=== PATIENT | male | born 1980 | race American Indian/Alaskan Native ===

== ENCOUNTER 2016-09-10 16:37 | Inpatient (IN) | payer MEDICAID, OTHER ==
[2016-09-10 16:51] VITALS: BMI 18.6
[2016-09-10 18:12] LABS: BASO % 0.2 % (0.0-2.0); EOS % 0.2 % (0.0-4.0); HEMATOCRIT 37.7 % (35.0-51.0); LYMPH # 1.8 K/uL (1.0-4.3); LYMPH % 14.9 % (20.0-40.0); MEAN CELL VOLUME 88.8 fL (80.0-94.0); MEAN CORPUSCULAR HEMOGLOBIN 29.2 pg (27.0-31.0); MEAN CORPUSCULAR HGB CONC 32.8 g/dL (33.0-37.0); MEAN PLATELET VOLUME 7.6 fL (7.2-11.7); MONO # 0.7 K/uL (0.0-0.8); MONO % 5.7 % (0.0-10.0); NRBC % 0.1 % (0.0-2.0); RED CELL DISTRIBUTION WIDTH 13.6 % (11.5-14.5); WHITE BLOOD COUNT 12.2 K/uL (4.8-10.8)
[2016-09-10 18:20] LABS: CHLORIDE 98 mmol/L (98-107); SODIUM 139 mmol/L (132-148)
[2016-09-10 18:21] LABS: POTASSIUM 4.1 mmol/L (3.6-5.2)
[2016-09-10 18:23] LABS: ALB/GLOB RATIO 1.3 (1.0-2.1); ALKALINE PHOSPHATASE 63 U/L (38-126); ALT/SGPT 24 U/L (21-72); AST/SGOT 16 U/L (17-59); BILIRUBIN,TOTAL 0.7 mg/dL (0.2-1.3); BLOOD UREA NITROGEN 10 mg/dL (9-20); CALCIUM 8.9 mg/dl (8.6-10.4); CARBON DIOXIDE 31 mmol/L (22-30); GFR AFRICAN-AMERICAN > 60; GLUCOSE,RANDOM 130 mg/dL (75-110)
[2016-09-10 18:24] LABS: ALCOHOL SERUM < 10 mg/dl (0-10)
--- NOTE | 2016-09-10 18:26 | C.PDOC ---
History Of Present Illness 35 y/o male, with history of cocaine and heroin abuse, brought to the ED by ambulance requesting detox. Patient states last use of cocaine was 2 hours ago, and last heroin use was earlier today. Patient states he feels shaky and nervous. Patient denies alcohol use or hisotry of alcohol withdrawal, chest pain , shortness of breath, abdominal pain, nausea, vomiting. Time Seen by Provider: 09/10/16 16:43 Chief Complaint (Nursing): Substance Abuse History Per: Patient History/Exam Limitations: no limitations Onset/Duration Of Symptoms: Gradual Current Symptoms Are (Timing): Still Present Suicide/Self Injury Attempted (Context): None Modifying Factor(s): Cocaine, Other (heroin) Severity: Mild Associated Symptoms: Other (nervous) Involuntary Hold By: None Additional History Per: Patient Past Medical History Reviewed: Historical Data, Nursing Documentation, Vital Signs Vital Signs: Last Vital Signs Temp 98.7 F 09/10/16 16:51 Pulse 101 H 09/10/16 16:51 Resp 18 09/10/16 16:51 BP 131/79 09/10/16 16:51 Pulse Ox 96 09/10/16 18:38 - Medical History PMH: Arthritis (sepic knees), Fractures (RIGHT AND LEFT ARMS/HANDS,SKULL FX, JUMPED IN,RIBS,LEFT LOWER LEG), Pneumonia - [facility] Procedures DETOXIFICATION SERVICES FOR SUBSTANCE ABUSE TREATMENT (09/28/15) INJECT/INFUSE NEC (01/29/13) Family History: States: No Known Family Hx - Social History Hx Tobacco Use: Yes (30 per day) Hx Alcohol Use: No Hx Substance Use: Yes (heroin) - Immunization History Hx Tetanus Toxoid Vaccination: No Hx Influenza Vaccination: No Hx Pneumococcal Vaccination: No Review Of Systems Except As Marked, All Systems Reviewed And Found Negative. Constitutional: Negative for: Fever, Chills Cardiovascular: Negative for: Chest Pain, Palpitations Respiratory: Negative for: Cough, Shortness of Breath Gastrointestinal: Negative for: Nausea, Vomiting, Abdominal Pain Neurological: Negative for: Headache, Dizziness Psych: Negative for: Withdrawal Physical Exam - Physical Exam Appears: Non-toxic, No Acute Distress, Other (anxious) Skin: Normal Color, Warm, Dry Head: Normacephalic Eye(s): bilateral: Normal Inspection Oral Mucosa: Moist Neck: Supple Cardiovascular: Rhythm Regular (mildly tachycardic), No Murmur Respiratory: Normal Breath Sounds, No Rales, No Rhonchi, No Wheezing Gastrointestinal/Abdominal: Normal Exam, Bowel Sounds, Soft, No Tenderness Extremity: Normal ROM Neurological/Psych: Oriented x3 ED Course And Treatment - Laboratory Results Result Diagrams: 09/10/16 18:04 09/10/16 18:04 O2 Sat by Pulse Oximetry: 96 (on RA) Pulse Ox Interpretation: Normal Progress Note: Blood work, UA, UDS ordered. Patient given PO Xanax, nicotine patch. 7:00pm- Patient medically cleared. Pending crisis. Disposition - Disposition Disposition Time: 19:00 Condition: STABLE - Clinical Impression Clinical Impression: Heroin dependence, Cocaine dependence - Scribe Statement The provider has reviewed the documentation as recorded by the Alexandro Rod Provider Attestation: All medical record entries made by the Eveliaibe were at my direction and personally dictated by me. I have reviewed the chart and agree that the record accurately reflects my personal performance of the history, physical exam, medical decision making, and the department course for this patient. I have also personally directed, reviewed, and agree with the discharge instructions and disposition. Physician Patient Turnover Patient Signed Over To: Debby Castillo Handoff Comments: Pending crisis, dispo.
[2016-09-10 18:44] LABS: RBC URINE 35 /hpf (0-3); URINE BACTERIA FEW (<OCC); URINE BILIRUBIN NEGATIVE (NEGATIVE); URINE BLOOD NEGATIVE (NEGATIVE); URINE COLOR Yellow (YELLOW); URINE GLUCOSE (UA) NORMAL (Normal); URINE KETONE TRACE mg/dL (NEGATIVE); URINE LEUKOCYTE ESTERASE 2+ Leu/uL (Negative); URINE PROTEIN 1+ mg/dL (NEGATIVE); URINE UROBILINOGEN NORMAL mg/dL (0.2-1.0); WBC URINE 86 /hpf (0-5)
[2016-09-10] MEDS ORDERED: Buprenorphine Hydrochloride 2 mg SL ONE (22:00)
[2016-09-11] MEDS ORDERED: Buprenorphine Hydrochloride 2 mg SL ONE
[2016-09-11] MEDS ORDERED: Buprenorphine Hydrochloride 2 mg SL SCH (14:00)
[2016-09-11] MEDS: Buprenorphine Hydrochloride 2 mg SL SCH ×2 (14:17→14:18)
--- NOTE | 2016-09-11 21:13 | PCM.PSYCH ---
Initial Psychiatric Evaluation - Initial Psychiatric Evaluation Legal Status: Capacity Chief Complaint (in patient's own words): I need to get well to care for my child! Patient's Reaction to Hospitalization: I am glad to get clean for my daughter! History of Present Illness and Precipitating Events: Pt isa36 year old black, unemployed, undomiciled male whose drug of choice is heroin. he stated using heroin four years ago. he has been on pa\\on killers for a broken back and fractured ankle. Several years ago he states that the pain was so bad from the fall of 20 feet where he broke his back, he was screaming for weeks. his significant other told him to sniff a powder which he states he did not was heroin and pain eased. Pt uses about 15 bags a day > Pt has been at detoxes in [facility], [facility], and [facility]. He has had [facility]. Pt denies use and abuse of other substances licit or illicit. Pt has been charged with simple assault. He has never been in the . Both parents are living. He has 2 full brother and 1 full sister and 20 half sibs. His aunt is a schizophrenic. Father has PTSD and uses cocaine. Mother age60 suffers from early onset dementia. Pt denied any psych hospitalization. He states he has been on clonidine and possibly Xanax However he states he has tried to kill himself by "Wrapping his car around a tree"he has overdosed on aspirin and he has cut his wrists. . He has withdraw symptoms of anxiety, depression, fever, chills and body sches. He also complasins of restless legs Current Medications: Active Medications Generic Name Dose Route Start Last Admin Trade Name Freq PRN Reason Stop Dose Admin Buprenorphine HCl 8 mg 09/11/16 14:00 09/11/16 14:17 Subutex SL 09/15/16 13:59 8 mg Q24H JAIRO Administration Taper Clonidine HCl 0.1 mg 09/11/16 13:20 Catapres PO Q8 PRN COWS Score More or Equal to 5 Hydroxyzine HCl 25 mg 09/11/16 13:24 09/11/16 16:36 Atarax PO 25 mg Q6 PRN Administration Anxiety Nitrofurantoin Macrocrystals 100 mg 09/11/16 20:00 09/11/16 20:17 Macrobid PO 09/14/16 20:00 100 mg Q12H JAIRO Administration Trazodone HCl 100 mg 09/10/16 22:00 09/11/16 00:16 Desyrel PO 100 mg HS PRN Administration insomnia Past Psychiatric History - Past Psychiatric History Prior Professional Help: see hpi Pertinent Medical Hx (Current Medical&Sleep Prob, Allergies): Allergies Allergy/AdvReac Type Severity Reaction Status Date / Time No Known Allergies Allergy Verified 09/10/16 16:48 Gabapentin [Neurontin] 400 mg PO TID #90 cap 10/02/15 Mirtazapine [Remeron] 30 mg PO HS #30 tab 10/02/15 traZODone [Desyrel] 50 mg PO HS PRN #30 tab 10/02/15 Review of Systems - Constitutional Constitutional: Chills, Sweats, Malaise - EENT Eyes: UNREMARKABLE Ears: UNREMARKABLE Nose/Mouth/Throat: UNREMARKABLE - Cardiovascular Cardiovascular: UNREMARKABLE - Respiratory Respiratory: UNREMARKABLE - Gastrointestinal Gastrointestinal: Abdominal Pain, Cramping, Loose Stools - Genitourinary Genitourinary: UNREMARKABLE - Reproductive: Male Reproductive:Male: UNREMARKABLE - Musculoskeletal Musculoskeletal: Arthralgias, Myalgias - Integumentary Integumentary: UNREMARKABLE - Neurological Neurological: UNREMARKABLE - Psychiatric Psychiatric: Anhedonia, Anxiety - Hematologic/Lymphatic Hematologic: UNREMARKABLE Mental Status Examination - Personal Presentation Personal Presentation: Looks stated age - Affect Affect: Constricted - Motor Activity Motor Activity: Calm - Reliability in Providing Information Reliability in Providing Information: Good - Speech Speech: Organized, Coherent - Mood Mood: Depressed, Anxious - Formal Thought Process Formal Thought Process: No Impairment - Obsessions/Compulsions Obsessions: No Compulsions: No - Cognitive Functions Orientation: Person, Place, Situation, Time Sensorium: Alert Attention/Concentration: Attentive Abstract Thinking: As evidence by literal perception of proverbs Estimate of Intelligence: Average Judgement: Intact, as evidence by: Insight regarding need for hospitalization Memory: Recent intact, as evidence by: 3/3 object recall, Remote intact, as evidenced by: Ability to recall historical events - Risk Risk: Withdrawal - Strength & Assets Inventory Strength & Assets Inventory: Intelligence, Employment history - Limitations Limitations: Living alone DSM 5 DX - DSM 5 DSM 5 Diagnosis: opioid use disorder sedvere opioid withdrawal opioid withdrawal Subutex opioid use disorder group milieu qnd recreational therapy [place] CBT andsupportive psychotherapy - Recommended/Plan of Treatment Projected ELOS: 5 days Prognosis: good with treatment Discharge Plan and Discharge Criteria: no acute withdrawal symptoms - Smoking Cessation Smoking Cessation Initiated: Yes
[2016-09-12] MEDS ORDERED: Aluminum Hydroxide/Magnesium Hydroxide Susp (30 mL) PO PRN (10:19)
[2016-09-12] MEDS ORDERED: Buprenorphine Hydrochloride 2 mg SL SCH (11:00)
[2016-09-12] MEDS: Buprenorphine Hydrochloride 2 mg SL SCH (11:10)
--- NOTE | 2016-09-12 11:27 | PCM.PYCHPN ---
Psychiatric Progress Note - Psychiatric Progress Note Patient seen today, length of contact: 16 min Patient Chief Complaint: "I don't feel well" Problems Identified/Issues Discussed: The pt is seen, chart reviewed, case discussed with staff. The pt is compliant with medications and reports no side-effects. Symptoms are improving but needs more time to stabilize. After care discussed, support and psychoeducation given. RI and CBT used briefly. Medication Change: Yes (detox changes daily) Medical Record Reviewed: Yes Mental Status Examination - Cognitive Function Orientation: Person, Place, Situation, Time Memory: Impaired Attention: Poor Concentration: Poor Association: WNL Fund of Knowledge: WNL - Mood Mood: Depressed, Anxious - Affect Affect: Constricted - Speech Speech: Soft - Formal Thought Process Formal Thought Process: No Impairment - Suicidal Ideation Suicidal Ideation: No - Homicidal Ideation Homicidal Ideation: No Goal/Treatment Plan - Goal/Treatment Plan Need for Continued Stay: Discharge may exacerbated symptoms, Severe functional impairment Progress Toward Problem(s) and Goals/Treatment Plan: Continue subutex detox As needed meds Groups and activities Mi and CBt refer to IOP and MAT Estimated Date of D/C: 09/13/16 - Smoking Cessation Smoking Cessation Initiated: No
[2016-09-12 14:00] LABS: BASO % 0.4 % (0.0-2.0); EOS % 0.7 % (0.0-4.0); HEMATOCRIT 40.1 % (35.0-51.0); LYMPH # 2.1 K/uL (1.0-4.3); LYMPH % 32.7 % (20.0-40.0); MEAN CELL VOLUME 88.6 fL (80.0-94.0); MEAN CORPUSCULAR HEMOGLOBIN 29.3 pg (27.0-31.0); MEAN PLATELET VOLUME 7.4 fL (7.2-11.7); MONO # 0.6 K/uL (0.0-0.8); MONO % 9.6 % (0.0-10.0); RED CELL DISTRIBUTION WIDTH 13.9 % (11.5-14.5); WHITE BLOOD COUNT 6.4 K/uL (4.8-10.8)
[2016-09-12 14:23] LABS: BLOOD UREA NITROGEN 11 mg/dL (9-20); CALCIUM 8.9 mg/dl (8.6-10.4); CARBON DIOXIDE 26 mmol/L (22-30); CHLORIDE 100 mmol/L (98-107); GFR AFRICAN-AMERICAN > 60; GLUCOSE,RANDOM 105 mg/dL (75-110); POTASSIUM 4.3 mmol/L (3.6-5.2); SODIUM 137 mmol/L (132-148)
[2016-09-13] MEDS: Buprenorphine Hydrochloride 2 mg SL SCH (09:24)
--- NOTE | 2016-09-13 13:58 | PCM.PYCHPN ---
Psychiatric Progress Note - Psychiatric Progress Note Patient seen today, length of contact: 18 min Patient Chief Complaint: "I don't feel well" Problems Identified/Issues Discussed: The pt is seen, chart reviewed and case discussed. He looked concerned and sad and when questioned he claimed he had given custody of his 4-year old son to his friend Zeny, b/c he was in detox and then rehab and allegedly his had left and never came back. He heard that she contacted her mother to let her know that she was alright. He looked sad a little but he also left the impression that he may be feigning this sadness for secondary gains. He looked calm and happy many times during his saty and there were questionable issues in his story, i.e. giving custody of a child in a month to a friend (?) He states that he slept on and off last night for a few hours due to bad dreams and chronic back pain that worsens when hes clean. He denies feeling suicidal or homicidal. The pt is compliant with medications and reports no side-effects. Symptoms are improving but needs more time to stabilize. After care discussed, support and psychoeducation given. He is yet undecided but technical publications writer and team suggested he should consider rehab and MAT TN and CBT used briefly. Medication Change: Yes (detox changes daily) Medical Record Reviewed: Yes Mental Status Examination - Cognitive Function Orientation: Person, Place, Situation, Time Memory: Impaired Attention: Poor Concentration: Poor Association: WNL Fund of Knowledge: WNL - Mood Mood: Depressed, Anxious - Affect Affect: Constricted - Speech Speech: Soft - Formal Thought Process Formal Thought Process: No Impairment - Suicidal Ideation Suicidal Ideation: No - Homicidal Ideation Homicidal Ideation: No Goal/Treatment Plan - Goal/Treatment Plan Need for Continued Stay: Discharge may exacerbated symptoms, Severe functional impairment Progress Toward Problem(s) and Goals/Treatment Plan: Continue subutex detox As needed meds Groups and activities TN and CBt refer to IOP and MAT Estimated Date of D/C: 09/13/16
[2016-09-14] MEDS: Buprenorphine Hydrochloride 2 mg SL SCH (09:08)
--- NOTE | 2016-09-14 14:56 | PCM.PYCHPN ---
Psychiatric Progress Note - Psychiatric Progress Note Patient seen today, length of contact: 18 min Patient Chief Complaint: "I feel tired." Problems Identified/Issues Discussed: The pt is seen, chart reviewed and case discussed. The patient states hes tired because he has been unable to sleep, waking up 5- 6 times during the night to use the restroom. He also complains of pressure in his head, constant body aches, and periodic numbness in his left hand. He denies nausea, vomiting, and abdominal pain and states that his anxiety is no different than yesterday. His plan is to go to the [facility] tomorrow. He denies feeling suicidal or homicidal. The pt is compliant with medications and reports no side-effects. Symptoms are improving but needs more time to stabilize. After care discussed, support and psychoeducation given. Medication Change: Yes (detox changes daily) Medical Record Reviewed: Yes Mental Status Examination - Cognitive Function Orientation: Person, Place, Situation, Time Memory: Impaired Attention: WNL Concentration: WNL Association: WNL Fund of Knowledge: WNL - Mood Mood: Depressed, Anxious - Affect Affect: Constricted - Speech Speech: Soft - Formal Thought Process Formal Thought Process: No Impairment - Suicidal Ideation Suicidal Ideation: No - Homicidal Ideation Homicidal Ideation: No Goal/Treatment Plan - Goal/Treatment Plan Need for Continued Stay: Discharge may exacerbated symptoms, Severe functional impairment Progress Toward Problem(s) and Goals/Treatment Plan: Continue subutex detox As needed meds Groups and activities [place] and CBt Consider MAT Estimated Date of D/C: 09/15/16
[2016-09-14 15:38] VITALS: RESP 18
--- NOTE | 2016-09-15 09:36 | PCM.PYCHDC ---
Mental Status Examination - Mental Status Examination Orientation: Person, Place, Situation, Time Memory: Intact Mood: Anxious Affect: Constricted Speech: Appropriate Attention: WNL Concentration: WNL Association: WNL Fund of Knowledge: WNL Formal Thought Process: No Impairment Suicidal Ideation: No Current Homicidal Ideation?: No Discharge Summary - Discharge Note Reason for Hospitalization: Heroin detox Consultations:: List each consultation separately and include: 1. Reason for request. 2. Findings. 3. Follow-up Summary of Hospital Course include:: 1. Description of specific treatment plan utilized for patients during their course of treatmen. 2. Summarize the time- course for resolution of acute symptoms and/or regressed behaviors. 3. Describe issues identified and worked on during hospitalization. 4. Describe medication utilized. 5. Describe medical problems identified and treated. 6. Reassessment of suicide risk Summary of Hospital Course: The pt was admitted and started on treatment with psychotherapy, support, psychoeducation and medications. MD and CBT used. The pt attended groups and activities, as well as milieu therapy. All the risks and benefits of medications are discussed and the patient understood and agreed. After care discussed with the patient. He somewhat reluctantly agreed to [facility] [place] He was very odd, had blunted affect, aloof, guarded and sounded disingenuous at times. His motivation was also shaky but nevertheless he agreed to go to . - Final Diagnosis (DSM 5) Condition upon Discharge: IMPROVED DSM 5: Opioid withdrawal Opioid use d/o - severe Depressive d/o - unspecified Personality d/o - unspecified Disposition: REHAB FACILITY/REHAB UNIT Follow-up Treatment Plan: Continue below medications after discharge. Follow after care plan as discussed: [facility] Use relapse prevention skills Return to ER or call 911 if suicidal, homicidal or symptoms relapse. Stay away from stress, alcohol and drugs. Prescriptions/Medication Reconciliation: Gabapentin [Neurontin] 300 mg PO BID #60 cap Nitrofurantoin Macrocrystals [Macrobid] 100 mg PO Q12H #6 cap QUEtiapine [SEROquel] 50 mg PO HS #30 tab traZODone [Desyrel] 50 mg PO HS PRN #30 tab PRN Reason: insomnia
[2016-09-15 09:55] VITALS: BP 99/59; PULSE 93; TEMP 97.9; O2SAT 100
== END 2016-09-15 10:00 | DRG 745 ==
LOC: C.ER 16:37 → C.7D 20:36
PROVIDERS: ADMIT Psychiatry & Neurology Psychiatry; ATTEND Psychiatry & Neurology Psychiatry
PROC: HZ56ZZZ Individual Psychotherapy for Substance Abuse Treatment, Psychoeducation (ICD-10-PCS; principal; 2016-09-10)
PROC: HZ59ZZZ Individual Psychotherapy for Substance Abuse Treatment, Supportive (ICD-10-PCS; 2016-09-10)
PROC: HZ2ZZZZ Detoxification Services for Substance Abuse Treatment (ICD-10-PCS; 2016-09-10)
DX: F14.23 Cocaine dependence with withdrawal (principal); F32.9 Major depressive disorder, single episode, unspecified; G25.81 Restless legs syndrome; F11.23 Opioid dependence with withdrawal; F60.9 Personality disorder, unspecified

== ENCOUNTER 2016-09-18 22:39 | Emergency (ER) | payer MEDICAID, OTHER ==
[2016-09-18 22:39] VITALS: BMI 18.6
[2016-09-18] MEDS ORDERED: Promethazine/Cod 6.25mg-10mg/5ml Syr UD PO STA (23:58)
[2016-09-18] MEDS ORDERED: Albuterol 0.083% Inhal Sol (2.5 mg/3 mL) UD IH STA (23:58)
--- NOTE | 2016-09-19 | C.PDOC ---
History Of Present Illness A 35 year old male presents to the ER c/o URI symptoms 2 days, associated symptoms of nasal congestion, body aches, subjective tactile fever, and dry cough. Pt notes not being able to sleep last night because of coughing. Pt denies high fever, chills, headaches, neck pain, rash, drooling, dysphagia, dyspnea, abdominal pain, nausea, vomiting, UTi sx, denies recent travel or known sick contact, or any other complaints. At the time of evaluation, noted occasional dry cough. Time Seen by Provider: 09/18/16 23:28 Chief Complaint (Nursing): Flu-like Symptoms History Per: Patient History/Exam Limitations: no limitations Onset/Duration Of Symptoms: Days Current Symptoms Are (Timing): Still Present Sick Contacts (Context): None Severity: Mild Recent travel outside of the [place]: No Additional History Per: Patient Past Medical History Reviewed: Historical Data, Nursing Documentation, Vital Signs Vital Signs: Last Vital Signs Temp 98.4 F 09/18/16 23:17 Pulse 80 09/18/16 23:17 Resp 14 09/18/16 23:17 BP 144/80 09/18/16 23:17 Pulse Ox 96 09/19/16 00:18 - Medical History PMH: Arthritis (septic knees), Fractures (RIGHT AND LEFT ARMS/HANDS,SKULL FX, JUMPED IN,RIBS,LEFT LOWER LEG), Pneumonia (Hx.) Denies: Depression, Diabetes, Hepatitis, HIV, HTN, Chronic Kidney Disease, Seizures (Denied), Sexually Transmitted Disease - [facility] Procedures DETOXIFICATION SERVICES FOR SUBSTANCE ABUSE TREATMENT (09/10/16) INDIV PSYCHOTHERAPY FOR SUBSTANCE ABUSE TREATMENT, SUPPORT (09/10/16) INDIV PSYCHOTHERAPY FOR SUBSTANCE ABUSE, PSYCHOEDUCATION (09/10/16) INJECT/INFUSE NEC (01/29/13) Family History: States: Unknown Family Hx - Social History Hx Tobacco Use: Yes (30 per day) Hx Alcohol Use: No Hx Substance Use: Yes (heroin) - Immunization History Hx Tetanus Toxoid Vaccination: No Hx Influenza Vaccination: No Hx Pneumococcal Vaccination: No Review Of Systems Except As Marked, All Systems Reviewed And Found Negative. Constitutional: Positive for: Other (Body aches). Negative for: Fever (High fever), Chills ENT: Positive for: Nose Discharge, Nose Congestion, Throat Pain. Negative for: Ear Pain Respiratory: Positive for: Cough (Dry) Gastrointestinal: Negative for: Nausea, Vomiting, Abdominal Pain Skin: Negative for: Rash Neurological: Negative for: Headache Physical Exam - Physical Exam Appears: Well, Non-toxic, No Acute Distress, Other (occasional dry cough noted) Skin: Normal Color, Warm, No Rash Head: Normacephalic Eye(s): bilateral: PERRL Ear(s): Bilateral: Normal Nose: Discharge (B/L nasal congestin with scant clear rhinorhea) Oral Mucosa: Moist, No Drooling Tongue: Normal Appearing Lips: Normal Appearing Throat: Normal, No Erythema, No Exudate, No Drooling Neck: Supple Chest: Symmetrical Cardiovascular: Rhythm Regular Respiratory: No Decreased Breath Sounds, No Accessory Muscle Use, No Rales, No Rhonchi, No Stridor, No Wheezing Gastrointestinal/Abdominal: Soft, No Tenderness Back: No CVA Tenderness Extremity: Normal ROM, No Pedal Edema Neurological/Psych: Oriented x3, Normal Speech ED Course And Treatment O2 Sat by Pulse Oximetry: 96 (Nebulizer treatment) Pulse Ox Interpretation: Normal - Radiology CXR: Interpreted by Me, Viewed By Me CXR Interpretation: Yes: No Acute Disease Progress Note: Impression: 35 y/o male c/o URI symptoms for 2 days. Plans: CXR , Albuterol, Motrin, promethazine, nebulizer treatment, Rapid strep. . On re- evaluation, pt is afebrile, hemodynamiclay stable. Non-toxic. PulseOx 96% RA. ENT: no acute findings. neck: (-) meningeal sign. Lungs: CTA B/L, BS equal B /L. Abd: benign. Neurologicaly intact. Imaging review and appears without acute abnormalities. Pt has clinical fnidnings c/w acute bronchitis. Pt was advised on course of ds. ref. to f/u with PMD in 2-3 dyas for re-eavl. Return if any worsening or new changes. Disposition Counseled Patient/Family Regarding: Studies Performed, Diagnosis, Need For Followup, Rx Given - Disposition Referrals: Alex Norman MD [Staff Provider] - Disposition: HOME/ ROUTINE Disposition Time: 01:07 Condition: STABLE Additional Instructions: Encourage fluids take medication as prescribed Follow up with PMD in 2-3 days for re-evaluation. Return to Ed if any worsening or new changes. Prescriptions: Albuterol HFA [Ventolin HFA 90 mcg/actuation (8 g)] 1 puff IH Q6 #1 inhaler Azithromycin [Zithromax] 250 mg PO DAILY #4 tab Benzonatate [Tessalon Perle] 100 mg PO TID #14 capsule Instructions: Acute Bronchitis (ED) - Clinical Impression Clinical Impression: Bronchitis - Scribe Statement The provider has reviewed the documentation as recorded by the Eveliaibjae real All medical record entries made by the Eveliaibjae were at my direction and personally dictated by me. I have reviewed the chart and agree that the record accurately reflects my personal performance of the history, physical exam, medical decision making, and the department course for this patient. I have also personally directed, reviewed, and agree with the discharge instructions and disposition.
[2016-09-19] MEDS ORDERED: Promethazine/Cod 6.25mg-10mg/5ml Syr UD ONE ×2 (00:13→00:14)
[2016-09-19] MEDS ORDERED: Albuterol 0.083% Inhal Sol (2.5 mg/3 mL) UD ONE (00:50)
[2016-09-19 01:28] VITALS: BP 110/63; PULSE 88; RESP 16; TEMP 98; O2SAT 98
--- NOTE | 2016-09-19 10:47 | RAD ---
HISTORY: Cough COMPARISON: No prior. TECHNIQUE: Chest PA and lateral FINDINGS: LUNGS: No active pulmonary disease. PLEURA: No significant pleural effusion identified. No pneumothorax apparent. CARDIOVASCULAR: Normal. OSSEOUS STRUCTURES: Thoracolumbar scoliosis. VISUALIZED UPPER ABDOMEN: Normal. OTHER FINDINGS: None. IMPRESSION: No active disease. Concordant results with the preliminary interpretation rendered by the emergency department physician procedure.
== END 2016-09-19 01:28 | disposition home or self-care (01) ==
LOC: C.ER 22:39
DX: J40 Bronchitis, not specified as acute or chronic (principal); F17.210 Nicotine dependence, cigarettes, uncomplicated

== ENCOUNTER 2018-01-07 16:25 | Inpatient (IN) | payer OTHER ==
[2018-01-07 16:26] VITALS: BMI 18.6
--- NOTE | 2018-01-07 17:12 | C.PDOC ---
History Of Present Illness 37 year old male presents to the emergency department for heroin detox. Patient also complains of a headache and intermittent chills. He admits to having suicidal and homicidal ideation, and has threatened to hurt himself if he did not receive help. Last heroin usage was today. Time Seen by Provider: 01/07/18 16:54 Chief Complaint (Nursing): Substance Abuse History Per: Patient History/Exam Limitations: no limitations Onset/Duration Of Symptoms: Days Current Symptoms Are (Timing): Still Present Past Medical History Reviewed: Historical Data, Nursing Documentation, Vital Signs Vital Signs: Last Vital Signs Temp 98.0 F 01/07/18 16:30 Pulse 88 01/07/18 16:30 Resp 19 01/07/18 16:30 BP 129/72 01/07/18 16:30 Pulse Ox 98 01/07/18 18:19 - Medical History PMH: Arthritis (septic knees), Fractures (RIGHT AND LEFT ARMS/HANDS,SKULL FX, JUMPED IN,RIBS,LEFT LOWER LEG), Pneumonia (Hx.), Seizures Denies: Depression, Diabetes, Hepatitis, HIV, HTN, Chronic Kidney Disease, Sexually Transmitted Disease - [facility] Procedures DETOXIFICATION SERVICES FOR SUBSTANCE ABUSE TREATMENT (09/10/16) INDIV PSYCHOTHERAPY FOR SUBSTANCE ABUSE TREATMENT, SUPPORT (09/10/16) INDIV PSYCHOTHERAPY FOR SUBSTANCE ABUSE, PSYCHOEDUCATION (09/10/16) INJECT/INFUSE NEC (01/29/13) Family History: States: No Known Family Hx - Social History Hx Tobacco Use: Yes (30 per day) Hx Alcohol Use: No Hx Substance Use: Yes (Heroin) - Immunization History Hx Tetanus Toxoid Vaccination: No Hx Influenza Vaccination: No Hx Pneumococcal Vaccination: No Review Of Systems Except As Marked, All Systems Reviewed And Found Negative. Constitutional: Positive for: Chills. Negative for: Fever Neurological: Positive for: Headache Psych: Positive for: Suicidal ideation, Other (Homicidal ideation) Physical Exam - Physical Exam Additional Physical Exam Comments: Constitutional: No acute distress. Head: Normocephalic. Atraumatic. Eyes: PERRL. ENT: Moist mucous membranes. Neck: Supple. Cardiovascular: Regular rate. Radial pulse 2+ bilaterally. Chest: No tenderness. Respiratory: Clear to auscultation bilaterally. GI: Soft. Nontender. Nondistended. Back: No CVA tenderness. Musculoskeletal: No tenderness or swelling of extremities. Skin: No rash. Neurologic: Alert, no focal deficit. ED Course And Treatment - Laboratory Results Result Diagrams: 01/07/18 17:41 01/07/18 17:41 O2 Sat by Pulse Oximetry: 98 (RA) Pulse Ox Interpretation: Normal Medical Decision Making Medical Decision Making: Impression: Psychiatric Evaluation Plan: -Labs -Urinalysis Disposition - Disposition Disposition: HOSPITALIZED Disposition Time: 18:19 Condition: GUARDED Forms: [facility] (Irish) - Clinical Impression Clinical Impression: Opioid use disorder, severe, dependence - Scribe Statement The provider has reviewed the documentation as recorded by the Alexandro Cintron Provider Attestation: All medical record entries made by the Alexandro were at my direction and personally dictated by me. I have reviewed the chart and agree that the record accurately reflects my personal performance of the history, physical exam, medical decision making, and the department course for this patient. I have also personally directed, reviewed, and agree with the discharge instructions and disposition.
[2018-01-07 17:53] LABS: BASO # 0.1 K/uL (0.0-0.2); BASO % 0.8 % (0.0-2.0); EOS # 0.1 K/uL (0.0-0.7); EOS % 0.6 % (0.0-4.0); HEMOGLOBIN 12.4 g/dL (12.0-18.0); LYMPH # 1.6 K/uL (1.0-4.3); LYMPH % 14.6 % (20.0-40.0); MEAN CORPUSCULAR HEMOGLOBIN 27.9 pg (27.0-31.0); MEAN CORPUSCULAR HGB CONC 32.7 g/dL (33.0-37.0); MEAN PLATELET VOLUME 7.3 fL (7.2-11.7); MONO # 1.2 K/uL (0.0-0.8); MONO % 10.4 % (0.0-10.0); NEUT # 8.2 K/uL (1.8-7.0); NEUT % 73.6 % (50.0-75.0); RBC 4.45 Mil/uL (4.40-5.90); RED CELL DISTRIBUTION WIDTH 14.6 % (11.5-14.5)
[2018-01-07 17:54] LABS: MEAN CELL VOLUME 85.3 fL (80.0-94.0); WHITE BLOOD COUNT 11.1 K/uL (4.8-10.8)
[2018-01-07 18:00] LABS: ALB/GLOB RATIO 1.2 (1.0-2.1); ALBUMIN 4.1 g/dL (3.5-5.0); ALT/SGPT 19 U/L (21-72); AST/SGOT 14 U/L (17-59); BLOOD UREA NITROGEN 8 mg/dL (9-20); CALCIUM 8.9 mg/dl (8.6-10.4); GFR NON-AFRICAN AMERICAN > 60
[2018-01-07 18:06] LABS: SQUAMOUS EPITHIAL 1 /hpf (0-5); URINE BACTERIA RARE (<OCC); URINE BILIRUBIN NEGATIVE (NEGATIVE); URINE BLOOD NEGATIVE (NEGATIVE); URINE CLARITY Hazy (Clear); URINE COLOR Yellow (YELLOW); URINE GLUCOSE (UA) NORMAL (Normal); URINE LEUKOCYTE ESTERASE 2+ Leu/uL (Negative); URINE PROTEIN 1+ mg/dL (NEGATIVE)
[2018-01-07 18:11] LABS: BARBITURATES, UR NEGATIVE (NEGATIVE); BENZODIAZEPINES, UR NEGATIVE (NEGATIVE); PHENCYCLIDINE, UR NEGATIVE (NEGATIVE)
[2018-01-07 18:19] LABS: OPIATES, UR POSITIVE (NEGATIVE)
--- NOTE | 2018-01-07 19:18 | PCM.BM ---
<Chelsea Jimenez - Last Filed: 01/07/18 19:17> Treatment Plan Problems - Problems identified on initial assessmt potiential for opiate withdrawal Date Initiated: 01/07/18 Time Initiated: 19:17 Assessment reference: NA Status: Active Treatment assets and liabiliti Patient Assests: ADL independent, physically healthy, cognitively intact Patient Liabilities: substance abuse - Milieu Protocol Maintain good personal hygiene: daily Encourage regular showers, daily Remind patient to perform daily oral care, daily Assist patient to perform ADL's Maintain personal safety: every shift Educate patient to report safety concerns to staff, every shift Monitor environment for contraband/sharps Medication safety: Monitor for expected outcome, potential side effects: every shift, Assess barriers to learning: every shift, Assess readiness for medication education: every shift <Polly Pritchard - Last Filed: 01/08/18 13:49> Family Contact Family involvement: Famliy/SO not involved - Goals for Treatment Patient goals for treatment: Complete detox and discuss aftercare options with the counseling staff. Discharge/Continuing Care - Education Needs Education Needs: Patient Medication, Patient Diagnosis/Disease Process, Patient Coping Skills, Patient Anger Management skills, Patient Placement options, Patient Community resources - Discharge Discharge Criteria: No longer exhibiting s/s of withdrawal, Reduction of target symptoms Discharge to:: Other - Additional Comments 01/08/18 13:50 Aftercare to be determined as pt. is unsure at this time. - Treatment Team Participation Discussed with Family/SO: No Was Patient/Family/SO present at Treatment Team Meeting: Yes <Darryn Delacruz - Last Filed: 01/09/18 00:11> - Diagnosis (1) Opioid use disorder, severe, dependence Status: Acute Interventions: 01/09/18 00:11 * Assess 7x/week regarding severity of withdrawal * Educate regarding risks, benefits, side effects and alternatives of medications * Use Motivational Interviewing for abstinence * Use CBT for relapse prevention * Medication management for withdrawal symptoms * Encourage medication assisted treatment *
[2018-01-07] MEDS ORDERED: Buprenorphine Hydrochloride 2 mg SL ONE ×2 (19:59→21:00)
[2018-01-07] MEDS ORDERED: Aluminum Hydroxide/Magnesium Hydroxide Susp (30 mL) PO PRN (20:56)
[2018-01-08] MEDS: Buprenorphine Hydrochloride 2 mg SL SCH (10:10)
--- NOTE | 2018-01-08 16:27 | PCM.PSYCH ---
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 pt has 3 children that live with their mothers. Pt came into [facility] yesterday due to history of heroin and wanting detox . pt uses 20-40 bags of heroin IV per day for the past 5 years. pt's last usage was yesterday. pt states he also uses small amounts of cocaine infrequently through IV, last usage was 2 days ago. pt states he began using heroin due to back pain which started 5 years ago. His pain was not controlled by percocet and he was offered heroin by his . pt had multiple detox attempts in the past, cannot remember his longest sobriety. pt has hx of 2 OD in the past, reversed by narcan. pt was irritable and agitated from withdrawal symptoms during interview. Pt denies depressed mood, feelings of guilt, fatigue, concentration problems, decreased appetite, anhedonia, SI/HI. Pt denies racing thoughts, paranoia, manic episodes. Pt denies auditory, visual or tactile hallucinations. Pt smokes 1PPD. denies alcohol, marijuana, or any other substance use Psych Hx: denies Traumatic Hx: pt states the of his grandmothers and aunt as a trauma life experience Family psych Hx: Mother and Father have history of substance abuse. Medical Hx: Hepatitis C Legal Hx: hx of arrest due to dispute with brother and Current Medications: Active Medications Generic Name Dose Route Start Last Admin Trade Name Freq PRN Reason Stop Dose Admin Al Hydrox/Mg Hydrox/Simethicone 30 ml 01/07/18 20:56 Maalox 30 Ml PO TID PRN Indigestion / Heartburn Buprenorphine HCl 8 mg 01/08/18 10:00 01/08/18 10:10 Subutex SL 01/12/18 09:59 8 mg DAILY JAIRO Administration Taper Clonidine HCl 0.1 mg 01/07/18 20:56 Catapres PO Q8 PRN COWS Score More or Equal to 5 Cyclobenzaprine HCl 5 mg 01/08/18 14:00 01/08/18 13:14 Flexeril PO 5 mg TID JAIRO Administration Hydroxyzine HCl 25 mg 01/07/18 19:35 01/08/18 10:10 Atarax PO 25 mg Q6 PRN Administration Anxiety Ibuprofen 600 mg 01/08/18 13:07 01/08/18 13:14 Motrin Tab PO 600 mg Q6 PRN Administration pain 4-7 Loperamide HCl 2 mg 01/07/18 20:56 Imodium PO Q8 PRN Diarrhea Nicotine 1 patch 01/08/18 10:30 01/08/18 10:24 Nicoderm Cq TD 1 patch DAILY JAIRO Administration Ondansetron HCl 4 mg 01/07/18 20:56 Zofran Tab PO Q8 PRN Nausea/Vomiting Pseudoephedrine HCl 60 mg 01/07/18 20:56 Sudafed Tab PO QID PRN Nasal/Sinus Congestion Quetiapine Fumarate 150 mg 01/08/18 22:00 Seroquel PO HS JAIRO Trazodone HCl 100 mg 01/08/18 22:00 Desyrel PO HS JAIRO Past Psychiatric History - Past Psychiatric History Pertinent Medical Hx (Current Medical&Sleep Prob, Allergies): Allergies Allergy/AdvReac Type Severity Reaction Status Date / Time No Known Allergies Allergy Verified 01/07/18 16:38 Gabapentin [Neurontin] 300 mg PO BID #60 cap 09/14/16 traZODone [Desyrel] 50 mg PO HS PRN #30 tab 09/14/16 Albuterol HFA [Ventolin HFA 90 mcg/actuation (8 g)] 1 puff IH Q6 PRN 01/07/18 Amoxicillin 1 tab BID 01/07/18 QUEtiapine [SEROquel] 50 mg PO HS PRN 01/07/18 Review of Systems - Psychiatric Psychiatric: Abnormal Sleep Pattern, Anxiety, Irritability. absent: Auditory Hallucinations, Homicidal Ideation, Suicidal Ideation, Visual Hallucinations, Tactile Hallucinations Mental Status Examination - Personal Presentation Personal Presentation: Looks stated age - Affect Affect: Constricted - Motor Activity Motor Activity: Psychomotor Agitation - Reliability in Providing Information Reliability in Providing Information: Good - Speech Speech: Organized - Mood Mood: Anxious - Formal Thought Process Formal Thought Process: No Impairment - Cognitive Functions Orientation: Person, Place, Situation, Time Sensorium: Drowsy Attention/Concentration: Easily distracted Abstract Thinking: [place] Estimate of Intelligence: Average Judgement: Intact, as evidence by: Insight regarding need for hospitalization Memory: Recent intact, as evidence by: Ability to recall events of the day, Remote impaired as evidenced by: Inability to recall sig life events - Risk Risk: Withdrawal, Diminished functioning - Strength & Assets Inventory Strength & Assets Inventory: Cooperative - Limitations Limitations: Living alone DSM 5 DX - DSM 5 DSM 5 Diagnosis: Opioid Use Disorder, severe Opioid Withdrawal Cocaine Use disorder, moderate - Recommended/Plan of Treatment Treatment Recommendations and Plan of Treatment: Subutex for opioid withdrawal Seroquel for irritability, mood sxs, insomnia As need medications All risks, benefits and alternatives of the meds discussed, and the pt agreed and understood. Attend groups and activities Individual therapy daily Psychoeducation and support daily Encourage compliance with meds and after care Refer to outpatient program Teach healthy lifestyle methods, i.e. diet, exercise, meditation Smoking cessation and patch if needed 35 mins Projected ELOS: 4-5 days
[2018-01-08] MEDS ORDERED: Buprenorphine Hydrochloride 2 mg SL SCH (20:56)
[2018-01-09] MEDS: Buprenorphine Hydrochloride 2 mg SL SCH (09:26)
[2018-01-09] MEDS: Multiple Vitamins Tab PO SCH (11:15)
[2018-01-09 17:29] VITALS: RESP 18
[2018-01-10 06:39] VITALS: BP 108/68; PULSE 62; TEMP 98; O2SAT 98
--- NOTE | 2018-01-10 08:52 | PCM.PYCHDC ---
Mental Status Examination - Mental Status Examination Orientation: Person Discharge Summary - Discharge Note Consultations:: List each consultation separately and include: 1. Reason for request. 2. Findings. 3. Follow-up Summary of Hospital Course include:: 1. Description of specific treatment plan utilized for patients during their course of treatmen. 2. Summarize the time- course for resolution of acute symptoms and/or regressed behaviors. 3. Describe issues identified and worked on during hospitalization. 4. Describe medication utilized. 5. Describe medical problems identified and treated. 6. 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 Pt came into [facility] yesterday due to history of heroin and wanting detox . pt uses 20-40 bags of heroin IV per day for the past 5 years. pt's last usage was yesterday. pt states he also uses small amounts of cocaine infrequently through IV, last usage was 2 days ago. pt states he began using heroin due to back pain which started 5 years ago. His pain was not controlled by percocet and he was offered heroin by his . pt had multiple detox attempts in the past, cannot remember his longest sobriety. pt has hx of 2 OD in the past, reversed by narcan. pt was irritable and agitated from withdrawal symptoms during interview. Pt denies depressed mood, feelings of guilt, fatigue, concentration problems, decreased appetite, anhedonia, SI/HI. Pt denies racing thoughts, paranoia, manic episodes. Pt denies auditory, visual or tactile hallucinations. Pt smokes 1PPD. denies alcohol, marijuana, or any other substance use Psych Hx: denies Traumatic Hx: pt states the of his grandmothers and aunt as a trauma life experience Family psych Hx: Mother and Father have history of substance abuse. Medical Hx: Hepatitis C Legal Hx: hx of arrest due to dispute with brother and He will go to a subox. and [facility]. He was disrespectful and at times verbally abusive towards the documentation writer and staff. He should be referred to MAT, should he wants to return. - Diagnosis (1) Opioid use disorder, severe, dependence Current Visit: Yes Status: Acute - Final Diagnosis (DSM 5) Condition upon Discharge: GUARDED Disposition: HOME/ ROUTINE Follow-up Treatment Plan: Subutex for opioid withdrawal Seroquel for irritability, mood sxs, insomnia As need medications All risks, benefits and alternatives of the meds discussed, and the pt agreed and understood. Attend groups and activities Individual therapy daily Psychoeducation and support daily Encourage compliance with meds and after care Refer to outpatient program Teach healthy lifestyle methods, i.e. diet, exercise, meditation Smoking cessation and patch if needed 35 mins Prescriptions/Medication Reconciliation: Albuterol HFA [Ventolin HFA 90 mcg/actuation (8 g)] 1 puff IH Q6 PRN #1 inhaler PRN Reason: Shortness Of Breath Cyclobenzaprine [Flexeril] 5 mg PO BID #60 tab Mirtazapine [Remeron] 15 mg PO HS #30 tab QUEtiapine [Seroquel] 100 mg PO HS PRN #30 tab PRN Reason: Insomnia traZODone [Desyrel] 100 mg PO HS #30 tab
[2018-01-10] MEDS: Multiple Vitamins Tab PO SCH (09:24)
[2018-01-10] MEDS: Buprenorphine Hydrochloride 2 mg SL SCH (09:24)
== END 2018-01-10 09:35 | disposition home or self-care (01) | DRG 744 ==
LOC: C.ER 16:25 → C.7D 18:58
PROVIDERS: ADMIT Psychiatry & Neurology Psychiatry; ATTEND Psychiatry & Neurology Psychiatry
PROC: HZ2ZZZZ Detoxification Services for Substance Abuse Treatment (ICD-10-PCS; principal; 2018-01-07)
PROC: HZ52ZZZ Individual Psychotherapy for Substance Abuse Treatment, Cognitive-Behavioral (ICD-10-PCS; 2018-01-07)
PROC: HZ59ZZZ Individual Psychotherapy for Substance Abuse Treatment, Supportive (ICD-10-PCS; 2018-01-07)
PROC: HZ56ZZZ Individual Psychotherapy for Substance Abuse Treatment, Psychoeducation (ICD-10-PCS; 2018-01-07)
PROC: HZ42ZZZ Group Counseling for Substance Abuse Treatment, Cognitive-Behavioral (ICD-10-PCS; 2018-01-07)
PROC: HZ46ZZZ Group Counseling for Substance Abuse Treatment, Psychoeducation (ICD-10-PCS; 2018-01-07)
PROC: GZHZZZZ Group Psychotherapy (ICD-10-PCS; 2018-01-07)
PROC: GZ58ZZZ Individual Psychotherapy, Cognitive-Behavioral (ICD-10-PCS; 2018-01-07)
PROC: GZ56ZZZ Individual Psychotherapy, Supportive (ICD-10-PCS; 2018-01-07)
DX: F11.23 Opioid dependence with withdrawal (principal); B19.20 Unspecified viral hepatitis C without hepatic coma; F14.20 Cocaine dependence, uncomplicated; F17.210 Nicotine dependence, cigarettes, uncomplicated; R45.850 Homicidal ideations; R45.851 Suicidal ideations; G47.00 Insomnia, unspecified